=== PATIENT | male | born 1955 | race Caucasian/White ===

== ENCOUNTER 2016-03-06 13:12 | Inpatient (IN) | payer MEDICAID, OTHER ==
[~2016-03-06] VITALS: Ht 170.2 cm; Wt 87.1 kg
[~2016-03-06 13:12] MED LIST: ACET-784 PO; ASPI81 PO; DSS100 PO; METO25 PO; MOM30 PO; MULT-1192 PO; NICO1PAT16 TD; OXYC-341 PO; PANT40TA25 PO; QUET25TA PO; SIMV-260 PO; ZOLP10 PO
[2016-03-06 13:43] LABS: BASOPHILS % (AUTO) 0.6 % (0.0-2.0); HEMATOCRIT 39.7 % (41-53); HEMOGLOBIN 13.3 g/dL (13.5-17.5); LYMPHOCYTES # (AUTO) 2.9 K/uL (1.0-4.8); MEAN CORPUSCULAR HEMOGLOBIN 32.3 pg (26.0-34.0); MEAN CORPUSCULAR HGB CONC 33.4 G/dL (31.0-37.0); MEAN CORPUSCULAR VOLUME 97 fL (80-100); MONOCYTES # (AUTO) 0.7 K/uL (0.1-1.0); MONOCYTES % (AUTO) 7.1 % (2.0-9.0); NEUTROPHILS # (AUTO) 5.9 K/uL (1.8-7.7); NEUTROPHILS % (AUTO) 60.3 % (40.0-70.0); PLATELET COUNT (AUTO) 409 K/uL (150-450); RED BLOOD CELL COUNT(AUTO) 4.11 MIL/uL (4.50-5.90); RED CELL DISTRIBUTION WIDTH 15.6 % (11.5-14.5); WHITE BLOOD COUNT (AUTO) 9.8 K/uL (4.5-11.0)
[2016-03-06 13:50] LABS: ANION GAP 11 mmol/L (8-16); CARBON DIOXIDE 25 mmol/L (22-29); CHLORIDE 104 mmol/L (98-107); CREATININE 0.62 mg/dL (0.60-1.30); POTASSIUM 4.1 mmol/L (3.5-5.1); SODIUM SERUM 140 mmol/L (136-145); UREA NITROGEN, BLOOD 15 mg/dL (7-18)
[2016-03-06 13:51] LABS: CALCIUM, TOTAL 8.9 mg/dL (8.8-10.5); GLOMERULAR FILTR. RATE CALC > 60 mL/min (>60)
[2016-03-06 13:56] LABS: ALANINE AMINOTRANSFERASE 28 U/L (12-78); ALBUMIN 3.5 g/dL (3.4-5.0); ASPARTATE AMINOTRANSFERASE 18 U/L (15-37); BILIRUBIN,TOTAL 0.1 mg/dL (0.1-1.0); TOTAL PROTEIN, SERUM 7.7 g/dL (6.4-8.2)
[2016-03-06 15:05] LABS: CREATINE KINASE, TOTAL 47 U/L (39-308)
[2016-03-06 15:09] LABS: INR 0.9 (0.9-1.1)
[2016-03-06 15:21] LABS: B-TYPE NATRIURETIC PEPTIDE 96 pg/mL (0-100)
[2016-03-06 17:03] LABS: APPEARANCE,URINE SL CLOUDY (CLEAR); GLUCOSE, URINE (UA) NEGATIVE (NEGATIVE); KETONES,URINE NEGATIVE (NEGATIVE); LEUKOCYTE ESTERASE ,URINE MODERATE (NEGATIVE); OCCULT BLOOD,URINE TRACE (NEGATIVE); PH,URINE 5.5 (5.0-8.0); PROTEIN,URINE NEGATIVE (NEGATIVE)
[2016-03-06 17:11] LABS: ADD UA MICROSCOPIC YES
[2016-03-06 17:18] LABS: SQUAMOUS EPITHELIAL CELL,UR Rare /LPF (None Seen)
[2016-03-06 17:20] LABS: RBC,URINE 0-2 /HPF (0-2)
[2016-03-06] MEDS ORDERED: HALOPERIDOL 5 MG TABLET PO PRN (18:00)
[2016-03-06] MEDS ORDERED: LORazepam 2 MG TABLET PO ONE (18:00)
[2016-03-06] MEDS ORDERED: CYANOCOBALAMIN 1,000 MCG/ML VIAL IM ONE (18:00)
[2016-03-06] MEDS ORDERED: LOPERAMIDE HCL 2 MG CAPSULE PO PRN (18:00)
[2016-03-06] MEDS ORDERED: GuaiFENesin/D-METHORPHAN [SUGAR-FREE] 200-20MG/10 ML SYRUP UDCUP PO PRN (18:00)
[2016-03-06] MEDS ORDERED: LORazepam 2 MG TABLET PO PRN ×2 (18:00)
[2016-03-06 19:54] VITALS: BP 133/89
[2016-03-06] MEDS ORDERED: IBUPROFEN 600 MG TABLET PO PRN (20:45)
[2016-03-06] MEDS ORDERED: ACETAMINOPHEN 325 MG TABLET PO PRN (20:45)
[2016-03-06 20:55] VITALS: BP 140/77
[2016-03-06] MEDS: ZOLPIDEM TARTRATE 10 MG TABLET PO PRN (21:30)
[2016-03-06] MEDS: SIMVASTATIN 20 MG TABLET PO SCH (21:30)
[2016-03-06] MEDS: PANTOPRAZOLE SODIUM 40 MG DR TABLET PO SCH (21:31)
[2016-03-06 21:45] VITALS: BP 140/90
[2016-03-06 22:54] VITALS: BP 139/99
[2016-03-07] VITALS (9 sets, daily range): BP systolic 118–153; BP diastolic 69–98
[2016-03-07] MEDS ORDERED: LORazepam 2 MG TABLET PO PRN (07:00)
[2016-03-07] MEDS ORDERED: MULTIVITAMINS, THERAPEUTIC TABLET PO SCH (09:00)
[2016-03-07] MEDS: LORazepam 2 MG TABLET PO SCH ×4 (09:48→21:12)
[2016-03-07] MEDS: ASPIRIN 81 MG CHEWABLE TABLET PO SCH (09:48)
[2016-03-07] MEDS: THIAMINE HCL 100 MG TABLET PO SCH ×2 (09:49→16:40)
[2016-03-07] MEDS: DOCUSATE SODIUM 100 MG CAPSULE PO SCH ×2 (09:49→16:39)
[2016-03-07] MEDS: FOLIC ACID 1 MG TABLET PO SCH (09:49)
[2016-03-07] MEDS: METOPROLOL TARTRATE 25 MG TABLET PO SCH ×2 (09:49→16:39)
[2016-03-07] MEDS: MULTIVITAMINS WITH MINERALS, THERAPEUTIC TABLET PO SCH (09:49)
[2016-03-07] MEDS: NICOTINE 21 MG/24 HOUR PATCH TD SCH (09:53)
[2016-03-07] MEDS: LEVOFLOXACIN 500 MG TABLET PO SCH (21:12)
[2016-03-07] MEDS: SIMVASTATIN 20 MG TABLET PO SCH (21:12)
[2016-03-07] MEDS: PANTOPRAZOLE SODIUM 40 MG DR TABLET PO SCH (21:12)
[2016-03-08 02:42] VITALS: BP 121/64
[2016-03-08 02:52] VITALS: BP 121/64
[2016-03-08 08:30] VITALS: BP_SYST 136; BP_SYST 137; BP_DIAS 77
[2016-03-08] MEDS: FOLIC ACID 1 MG TABLET PO SCH (09:12)
[2016-03-08] MEDS: THIAMINE HCL 100 MG TABLET PO SCH ×2 (09:12→16:51)
[2016-03-08] MEDS: ASPIRIN 81 MG CHEWABLE TABLET PO SCH (09:12)
[2016-03-08] MEDS: SERTRALINE HCL 50 MG TABLET PO SCH (09:12)
[2016-03-08] MEDS: MULTIVITAMINS WITH MINERALS, THERAPEUTIC TABLET PO SCH (09:12)
[2016-03-08] MEDS: LEVOFLOXACIN 500 MG TABLET PO SCH (09:13)
[2016-03-08] MEDS: DOCUSATE SODIUM 100 MG CAPSULE PO SCH ×2 (09:13→16:51)
[2016-03-08] MEDS: LORazepam 2 MG TABLET PO SCH ×4 (09:15→21:10)
[2016-03-08] MEDS: METOPROLOL TARTRATE 25 MG TABLET PO SCH ×2 (09:15→16:51)
[2016-03-08] MEDS: NICOTINE 21 MG/24 HOUR PATCH TD SCH (09:19)
[2016-03-08] MEDS: HydrOXYzine PAMOATE 50 MG CAPSULE PO PRN (10:09)
[2016-03-08 20:33] VITALS: BP 131/99
[2016-03-08 20:34] VITALS: BP 131/99
[2016-03-08] MEDS: PANTOPRAZOLE SODIUM 40 MG DR TABLET PO SCH (21:10)
[2016-03-08] MEDS: SIMVASTATIN 20 MG TABLET PO SCH (21:10)
[2016-03-08] MEDS: ZOLPIDEM TARTRATE 10 MG TABLET PO PRN (23:44)
[2016-03-09 03:04] VITALS: BP 149/98
[2016-03-09 03:08] VITALS: BP 149/98
[2016-03-09] MEDS ORDERED: LORazepam 1 MG TABLET PO PRN (07:00)
[2016-03-09 08:30] VITALS: BP 140/90
[2016-03-09] MEDS: NICOTINE 21 MG/24 HOUR PATCH TD SCH (09:17)
[2016-03-09] MEDS: LEVOFLOXACIN 500 MG TABLET PO SCH (09:17)
[2016-03-09] MEDS: HydrOXYzine PAMOATE 50 MG CAPSULE PO PRN (09:20)
[2016-03-09] MEDS: DOCUSATE SODIUM 100 MG CAPSULE PO SCH (09:20)
[2016-03-09] MEDS: FOLIC ACID 1 MG TABLET PO SCH (09:20)
[2016-03-09] MEDS: THIAMINE HCL 100 MG TABLET PO SCH (09:20)
[2016-03-09] MEDS: MULTIVITAMINS WITH MINERALS, THERAPEUTIC TABLET PO SCH (09:20)
[2016-03-09] MEDS: METOPROLOL TARTRATE 25 MG TABLET PO SCH (09:22)
[2016-03-09] MEDS: LORazepam 1 MG TABLET PO SCH ×2 (09:22→13:28)
[2016-03-09] MEDS: ASPIRIN 81 MG CHEWABLE TABLET PO SCH (09:22)
[2016-03-09] MEDS: SERTRALINE HCL 50 MG TABLET PO SCH (09:23)
[2016-03-09 10:35] VITALS: BP 130/85
[2016-03-09] MEDS ORDERED: SERT50TA12 PO (12:09)
[2016-03-09] MEDS ORDERED: FOLI1 PO (12:10)
[2016-03-09] MEDS ORDERED: LEVO500 PO (12:11)
[2016-03-09] MEDS ORDERED: THIA100 PO (12:13)
[2016-03-10] MEDS ORDERED: LORazepam 1 MG TABLET PO PRN (07:00)
== END 2016-03-09 13:50 | disposition home or self-care (01) | DRG 751 ==
LOC: EMS 13:14 → 3EI 18:56 → EMS 19:03
DX: F33.2 Major depressive disorder, recurrent severe without psychotic features (principal); R45.851 Suicidal ideations; I10 Essential (primary) hypertension; E78.5 Hyperlipidemia, unspecified; F12.90 Cannabis use, unspecified, uncomplicated; I25.10 Atherosclerotic heart disease of native coronary artery without angina pectoris; K21.9 Gastro-esophageal reflux disease without esophagitis; Y90.7 Blood alcohol level of 200-239 mg/100 ml; F10.229 Alcohol dependence with intoxication, unspecified; F17.210 Nicotine dependence, cigarettes, uncomplicated; Z59.0 Homelessness; Z82.49 Family history of ischemic heart disease and other diseases of the circulatory system; Z95.1 Presence of aortocoronary bypass graft; Z91.5 Personal history of self-harm; Z79.899 Other long term (current) drug therapy; Z79.82 Long term (current) use of aspirin; Z90.49 Acquired absence of other specified parts of digestive tract; I25.2 Old myocardial infarction
CPT/HCPCS: 87086; 93005; 96372; 99285; G0480; J3420

== ENCOUNTER 2017-05-31 10:30 | Emergency (ER) | payer MEDICAID, OTHER ==
[~2017-05-31] VITALS: Ht 170.2 cm; Wt 109.1 kg
[~2017-05-31 10:30] MED LIST changes: -ACET-784 PO; +FOLI1 PO; +LEVO500 PO; -MOM30 PO; -NICO1PAT16 TD; -OXYC-341 PO; -QUET25TA PO; +SERT50TA12 PO; +THIA100 PO; -ZOLP10 PO
[2017-05-31] MEDS ORDERED: RANI150T7 PO (10:53)
[2017-05-31] MEDS ORDERED: ATOR10TA84 PO (10:53)
[2017-05-31] MEDS ORDERED: ERYT1OIN7 OD (10:53)
[2017-05-31 12:25] VITALS: BP 118/77
== END 2017-05-31 12:27 | disposition home or self-care (01) ==
LOC: EMS 10:32
DX: H00.12 Chalazion right lower eyelid (principal); I10 Essential (primary) hypertension; I25.2 Old myocardial infarction; F17.210 Nicotine dependence, cigarettes, uncomplicated; Z79.82 Long term (current) use of aspirin
CPT/HCPCS: 99283